=== PATIENT | male | born 2000 | race Caucasian/White ===

== ENCOUNTER 2022-07-07 06:52 | Emergency (ER) | payer SELFPAY ==
[2022-07-07] MEDS ORDERED: Adacel Vial IM ONE ×2 (07:38→07:43)
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
[2022-07-07 09:21] VITALS: O2SAT 99
[2022-07-07] MEDS ORDERED: NORCO 5/325 MG PO ONE (09:22)
[2022-07-07] MEDS ORDERED: NORCO 5/325 MG ONE (09:24)
[2022-07-07 09:25] VITALS: BP 132/91; PULSE 76
== END 2022-07-07 09:38 | disposition home or self-care (01) ==
LOC: ED 06:52
DX: T52.0X1A Toxic effect of petroleum products, accidental (unintentional), initial encounter (principal); T23.621A Corrosion of second degree of single right finger (nail) except thumb, initial encounter; Z28.310 Unvaccinated for COVID-19; Z72.0 Tobacco use
CPT/HCPCS: 90471; 90715; 99283; A9270-GY